=== PATIENT | female | born 1985 | race Caucasian/White ===

== ENCOUNTER → 2019-03-28 12:34 | Outpatient (CLI) | payer OTHER, MEDICAID, SELFPAY | PROVIDERS: Visit Provider Physician Assistant | DX: J32.9 Chronic sinusitis, unspecified (principal) | CPT/HCPCS: 87070 ==

== ENCOUNTER 2020-03-17 20:58 | Emergency (ER) | payer OTHER, MEDICAID, SELFPAY ==
[2020-03-17 21:04] VITALS: BP 133/71; PULSE 93; RESP 16; TEMP 36.7; O2SAT 99; BMI 35.5
[2020-03-17 21:31] LABS: COVID19 -Nasal RAPID Negative (Negative)
--- NOTE | 2020-03-17 21:35 | ED.GENADULT ---
HPI - General Adult General Chief complaint: Upper Respiratory Symptoms Stated complaint: covid symptoms Time Seen by Provider: 03/17/20 21:08 Source: patient Mode of arrival: Ambulatory Limitations: no limitations History of Present Illness HPI narrative: 34-year-old female who has had approximately 1 week of body aches and a sore throat and developed a cough earlier today. She has a child at home who has leukemia so she was concerned about coronavirus. She does express somewhat of a sore throat. Has been taking Tylenol at home. She is here for a COVID-19 test. Related Data Home Medications Medication Instructions Recorded Confirmed No Known Home Medications 03/28/19 03/28/19 Allergies Allergy/AdvReac Type Severity Reaction Status Date / Time No Known Drug Allergies Allergy Verified 03/28/19 11:50 Review of Systems Constitutional Constitutional: Denies fever(s), Reports lethargy and Reports malaise ENT Ears, Nose, Mouth, and Throat: Reports sore throat Cardiovascular Cardiovascular: Denies chest pain and Denies dyspnea Respiratory Respiratory: Reports cough and Denies dyspnea Integumentary/Breasts Skin/Breast: Denies lesions and Denies rash Neurologic Neurologic: Denies behavioral changes Psychiatric Psychiatric: Denies behavioral changes Hematologic/Lymphatic Hematologic/Lymphatic: Denies easy bleeding and Denies easy bruising Patient History Medical History Healthy adult (Acute) Social History Smoking Status: Current every day smoker Smoking Status: Current every day smoker tobacco type: cigarettes alcohol intake frequency: holidays/special occasions only Substance Use Type: does not use Exam Initial Vital Signs Initial Vital Signs: Vital Signs Temperature 98.0 F 03/17/20 21:04 Pulse Rate 93 H 03/17/20 21:04 Respiratory Rate 16 03/17/20 21:04 Blood Pressure 133/71 03/17/20 21:04 Pulse Oximetry 99 03/17/20 21:04 Const General: cooperative, comfortable and well developed Resp Effort & Inspection: normal respiratory effort Auscultation: clear to auscultation bilaterally Skin Lesions: no lesions Rashes: no rashes Neuro General: patient alert, patient awake and patient oriented x3 Psych Appearance: grossly normal and well kempt Course Orders Ordered: ED Orders 03/17/20 21:08 COVID19 -ED/INPAT/OR/L&D Stat Vital Signs Vital signs: Vital Signs - 8 hr 03/17/20 21:04 03/17/20 21:53 Temperature 98.0 F Pulse Rate 93 H 79 Respiratory Rate 16 17 Blood Pressure 133/71 134/76 Pulse Oximetry 99 99 Medical Decision Making Lab Data Lab results reviewed: Yes I reviewed the patient's lab results. Labs: Lab Results 03/17/20 Range/Units 21:08 COVID-19 PCR Negative (Negative) MDM Narrative Medical decision making narrative: No respiratory distress, afebrile, coronavirus test negative. No indication for antibiotics. Patient was given return precautions. She expressed understanding agreement. Discharge Plan Departure Patient Disposition: Home Clinical Impression: Cough, Body aches Discharge Date/Time: 03/17/20 21:55 Activity Restrictions/Additional Instructions: Your coronavirus test is negative. Despite this I do recommend that you cover your cough in wash your hands frequently. Contact your primary provider for follow-up. Return to the emergency department for any new or worsening symptoms Prescriptions: No Action No Known Home Medications RF: 0
[2020-03-17 21:53] VITALS: BP 134/76; PULSE 79; RESP 17; O2SAT 99
== END 2020-03-17 21:55 | disposition home or self-care (01) ==
PROVIDERS: Emergency Provider Emergency Medicine
DX: Z03.818 Encounter for observation for suspected exposure to other biological agents ruled out (principal); R05 Cough; R52 Pain, unspecified; J02.9 Acute pharyngitis, unspecified
CPT/HCPCS: 87635; 99281; 99282

== ENCOUNTER 2020-04-03 18:27 | Emergency (ER) | payer OTHER, MEDICAID, SELFPAY ==
[2020-04-03 18:34] VITALS: BP 136/87; PULSE 69; RESP 15; TEMP 36.8; O2SAT 98; BMI 35.5
[2020-04-03] MEDS: TET,DIPH,PERTUSS(ACELL),VAC/PF 0.5 ML SYRINGE IM (20:38)
--- NOTE | 2020-04-03 21:43 | ED.WOUNDLAC ---
HPI - Wound/Laceration General Chief Complaint: Wound/Laceration Stated Complaint: RIGHT HAND LACERATION OF INDEX FINGER Time Seen by Provider: 04/03/20 21:25 Source: patient Mode of arrival: Ambulatory Limitations: no limitations History of Present Illness HPI narrative: 34-year-old female daily smoker with noncontributory medical history presents with a chief complaint of an accidental laceration dorsum of her right index finger. She was reaching into a washing machine Lint been and cut her finger on sharp metal. She is is unaware when her last tetanus shot might have been. It bled a fair amount initially but has since stopped. She has full range of motion and denies any numbness, tingling or weakness Onset (ago): minute(s) Extremity Location: Right: hand Place: home Patient tetanus UTD: No Context: accidental Associated symptoms: pain Treatments prior to arrival: bandage Related Data Previous Rx's Medication Instructions Recorded cephalexin [Keflex] 500 mg PO QID 7 Days #28 cap 04/03/20 Allergies Allergy/AdvReac Type Severity Reaction Status Date / Time No Known Drug Allergies Allergy Verified 04/03/20 18:34 Review of Systems Constitutional Constitutional: Denies chills, Denies fatigue, Denies fever(s), Denies frequent falls, Denies lethargy and Denies weakness Eyes Eyes: Denies change in vision, Denies eye discharge, Denies irritation and Denies loss of vision ENT Ears, Nose, Mouth, and Throat: Denies change in voice, Denies dizziness, Denies neck pain, Denies sore throat and Denies throat swelling Cardiovascular Cardiovascular: Denies chest pain, Denies irregular heart rhythm, Denies lightheadedness, Denies palpitations, Denies dyspnea, Denies dyspnea on exertion and Denies orthopnea Respiratory Respiratory: Denies cough, Denies dyspnea, Denies dyspnea on exertion and Denies wheezing Gastrointestinal Gastrointestinal: Denies abdominal pain, Denies change in bowel habits, Denies diarrhea, Denies nausea and Denies vomiting Musculoskeletal Musculoskeletal: Denies neck pain and Denies numbness Integumentary/Breasts Skin/Breast: Denies pruritus, Denies erythema, Denies rash and Reports wounds Neurologic Neurologic: Denies behavioral changes, Denies confusion, Denies dizziness, Denies frequent falls, Denies loss of vision, Denies numbness and Denies weakness Psychiatric Psychiatric: Denies anxiety, Denies behavioral changes, Denies confusion, Denies depression, Denies homicidal ideation and Denies suicidal ideation Endocrine Endocrine: Denies fatigue, Denies flushing and Denies palpitations Hematologic/Lymphatic Hematologic/Lymphatic: Denies easy bruising Allergic/Immunologic Allergic/Immunologic: Denies urticaria, Denies throat swelling and Denies wheezing Patient History Medical History Healthy adult Social History Smoking Status: Current every day smoker Smoking Status: Current every day smoker tobacco type: cigarettes alcohol intake frequency: holidays/special occasions only Substance Use Type: does not use and marijuana Exam Narrative Exam Narrative: GEN: AOx3 and in mild distress EYES: Pupils are equal, round, and reactive to light and accommodation. Extraoccular muscles are intact bilaterally. There is no subconjunctival hemorrhage or exudate. CHEST: Lungs are clear to auscultation bilaterally and free of wheezes, rales, or rhonchi. Heart rate is regular rhythm, there are no murmurs, clicks, rubs, or gallops. There is no chest wall tenderness. ABD: Abdomen is soft and nontender. There is no guarding or rebound. Bowel sounds are normal in all 4 quadrants. There is no mass or organomegaly. EXT: 1 cm laceration overlying the dorsal surface of the right index finger, over the middle phalanx. It is visualized in bloodless field and no involvement tendon noted. Patient has full strength, sensation and range of motion. SKIN: Warm, pink, and dry. No erythema or rash Initial Vital Signs Initial Vital Signs: Vital Signs Temperature 98.2 F 04/03/20 18:34 Pulse Rate 69 04/03/20 18:34 Respiratory Rate 15 04/03/20 18:34 Blood Pressure 136/87 04/03/20 18:34 Pulse Oximetry 98 04/03/20 18:34 Procedures Laceration Repair Laceration 1: Site: upper extremity Side (If applicable): right Size (cm): 1 Description: linear Depth: simple, single layer Local Anesthetic: lidocaine 1% Amount of anesthesia used (mL): 3 Skin layer closed with: nylon Size (cm): 5-0 Number of sutures: 3 Technique: simple, interrupted Course Orders Ordered: Discontinued Medications Bacitracin (Bacitracin Oint 0.9 Gm Pckt) 1 applic TOP NOW ONE Stop: 04/03/20 21:59 Last Admin: 04/03/20 22:05 Dose: 1 applic Documented by: MONCHO Diphtheria/Tetanus/Acell Pertussis (Tet,Diph,Pertuss(Acell),Vac/Pf 0.5 Ml Syringe) 0.5 ml IM .ONCE ONE Stop: 04/03/20 18:48 Last Admin: 04/03/20 20:38 Dose: 0.5 ml Documented by: GABRIEL Lidocaine/Sodium Bicarbonate (Lido 1%/Sod Bicarb 8.4% (10ml) 10 Ml Syringe) 10 ml INJ NOW ONE Stop: 04/03/20 21:44 Last Admin: 04/03/20 21:51 Dose: 10 ml Documented by: MONCHO Vital Signs Vital signs: Vital Signs - 8 hr 04/03/20 22:08 Pulse Rate 59 L Respiratory Rate 18 Blood Pressure 136/70 Pulse Oximetry 100 Discharge Plan Departure Patient Disposition: Home Clinical Impression: Laceration Instructions: DI for Laceration Repair Activity Restrictions/Additional Instructions: Please keep the wound clean and dry to the best of your ability. Please monitor for signs of infection such as redness to the skin or increasing pain. Have the sutures removed by your doctor in about 7 days. If you are unable to get into your doctor, we would be happy to remove the sutures in that same timeframe. Prescriptions: New cephalexin [Keflex] 500 mg capsule 500 mg PO QID 7 Days Qty: 28 RF: 0
[2020-04-03] MEDS: LIDO 1%/SOD BICARB 8.4% (10ML) 10 ML SYRINGE INJ (21:51)
[2020-04-03] MEDS: BACITRACIN OINT 0.9 GM PCKT 1 APPLIC TOP (22:05)
[2020-04-03 22:08] VITALS: BP 136/70; PULSE 59; RESP 18; O2SAT 100
== END 2020-04-03 22:08 | disposition home or self-care (01) ==
PROVIDERS: Emergency Provider Emergency Medicine
DX: S61.210A Laceration without foreign body of right index finger without damage to nail, initial encounter (principal); W26.9XXA Contact with unspecified sharp object(s), initial encounter; Z23 Encounter for immunization
CPT/HCPCS: 12001; 90471; 99281; 99283; 90715

== ENCOUNTER 2021-05-28 09:22 | Emergency (ER) | payer OTHER, MEDICAID, SELFPAY ==
[2021-05-28 09:25] VITALS: BP 109/60; PULSE 86; RESP 15; TEMP 37; O2SAT 99; BMI 38.7
--- NOTE | 2021-05-28 10:05 | ED_ITS ---
HPI - Fever General Chief Complaint: Fever Stated Complaint: Pain/numbness from top to bottom, faint, vomiting Time Seen by Provider: 05/28/21 09:32 Source: patient Mode of arrival: Ambulatory History of Present Illness HPI Narrative: Patient brought in from home by her family friend. Patient states no complaints or problems yesterday. She woke this morning at 3:00 a.m. with back pain and headache. Has nausea but no vomiting. Patient went to work this morning and developed a fever and oral thermometer read at least 100?. She took Motrin. She went home and took a cool bath. Family tried adjusting her back without any improvement. No prior history of back problems. She did have in the past with epidural that required a blood patch. There is COVID exposure by neighbors. Patient is COVID vaccinated. No cough cold congestion. No urinary complaints. No diarrhea. Related Data Previous Rx's Medication Instructions Recorded ondansetron 4 mg disintegrating 4 mg PO Q8H PRN #10 tab 05/28/21 tablet Allergies Allergy/AdvReac Type Severity Reaction Status Date / Time unknown allergy Allergy Uncoded 05/28/21 09:31 Review of Systems Review of Systems Narrative: GENERAL: Positivechills, fatigue, malaise, fever, negative sweats. HEENT: Denies sinus pain, ear pain, sore throat RESPIRATORY: Denies dyspnea, cough CARDIOVASCULAR: Denies chest pain, palpitations GASTROINTESTINAL: Positive nausea, negative vomiting, abdominal pain : Denies dysuria, frequency, hematuria MUSCULOSKELETAL: Positive muscle or bony pain SKIN: Denies rash, skin lesions NEUROLOGIC: Denies weakness, numbness, positive for headache ROS Unobtainable: All systems reviewed & are unremarkable except as noted in HPI and below Patient History Medical History (Updated 05/28/21 @ 10:57 by Edmundo Ross MD) Healthy adult Social History Smoking Status: Current every day smoker Smoking Status: Current every day smoker tobacco type: cigarettes alcohol intake frequency: holidays/special occasions only Substance Use Type: does not use and marijuana Exam Narrative Exam Narrative: GENERAL: in no distress, not toxic not dyspneic HEAD: Normocephalic. EYES: Pupils equal round No scleral icterus. No photophobia with funduscopic ENT: Mucous membranes moist. NECK: Trachea midline. Full active range of motion of the neck without any meningeal signs or pain. CARDIOVASCULAR: Regular rate and rhythm without murmurs RESPIRATORY: Clear to auscultation. Breath sounds equal bilaterally. No wheezes, rales, or rhonchi. GASTROINTESTINAL: Abdomen soft, non-tender EXTREMITIES: No gross deformities. BACK: Pain with movement of the back at the mid and lower levels NEURO: AOx4. SKIN: Warm and dry PSYCH: Not anxious, is cooperative Initial Vital Signs Initial Vital Signs: Vital Signs Temperature 98.6 F 05/28/21 09:25 Pulse Rate 86 05/28/21 09:25 Respiratory Rate 15 05/28/21 09:25 Blood Pressure 109/60 05/28/21 09:25 Pulse Oximetry 99 05/28/21 09:25 Course Course Course Narrative: No new issues during course of stay Orders Ordered: Discontinued Medications Sodium Chloride (Normal Saline 0.9%) 1,000 mls @ 1,000 mls/hr IV BOLUS ONE Stop: 05/28/21 10:52 Last Infusion: 05/28/21 11:23 Dose: 0 mls/hr Documented by: Admin: 05/28/21 10:20 Dose: 1,000 mls/hr Documented by: NIEVES Sodium Chloride (Normal Saline 0.9%) 1,000 mls @ 1,000 mls/hr IV BOLUS ONE Stop: 05/28/21 11:03 Last Admin: 05/28/21 11:22 Dose: Not Given Documented by: NIEVES Ketorolac Tromethamine (Ketorolac 30 Mg/Ml Vial) 15 mg IV NOW ONE Stop: 05/28/21 10:05 Last Admin: 05/28/21 10:19 Dose: 15 mg Documented by: NIEVES Ondansetron HCl (Ondansetron 4 Mg/2 Ml Inj) 4 mg IV NOW ONE Stop: 05/28/21 10:05 Last Admin: 05/28/21 10:20 Dose: 4 mg Documented by: NIEVES Reevaluation(s) Reevaluation #1: Reviewed results with patient. COVID positive. She is vaccinated. She states her child with leukemia on chemotherapy at home, patient states she will remove herself from the home. Return precautions reviewed with her. She states feeling much better after IV fluids Toradol and Zofran. Time: 10:56 Vital Signs Vital signs: Vital Signs - 8 hr 05/28/21 09:25 Temperature 98.6 F Pulse Rate 86 Respiratory Rate 15 Blood Pressure 109/60 Pulse Oximetry 99 MDM - Fever Differential Diagnosis Differential diagnosis: Likely fever of unknown origin, community acquired pneumonia, viral infection and other (COVID infection) Lab Data Result diagrams: 05/28/21 09:48 05/28/21 09:48 Labs: Lab Results 05/28/21 05/28/21 05/28/21 Range/Units 09:30 09:48 09:48 WBC 6.5 (4.5-11.0) X10^3/uL RBC 4.32 (4.0-5.2) X10^6/uL Hgb 12.6 (12.0-16.0) g/dL Hct 37.4 (36-46) % MCV 86.5 (80-100) fL MCH 29.3 (26-34) PG MCHC 33.8 (30-36) % RDW 13.6 (11.6-14.8) % Plt Count 215 (150-400) X10^3/uL Neut % (Auto) 82.6 H (50-75) % Lymph % (Auto) 4.2 L (25-40) % [place] % (Auto) 10.1 (3-14) % Eos % (Auto) 2.5 (2-4) % Baso % (Auto) 0.6 (0-2) % Neut # (Auto) 5400 (8671-7361) /uL Lymph # (Auto) 300 L (5825-9500) /uL [place] # (Auto) 700 (0-900) /uL Eos # (Auto) 200 (0-450) /uL Baso # (Auto) 0 (0-100) /uL Sodium 136 L (137-145) mmol/L Potassium 4.0 (3.4-5.1) mmol/L Chloride 103 (98-107) mmol/L Carbon Dioxide 24 (22-32) mmol/L BUN 13 (7-17) mg/dL Creatinine 0.83 (0.52-1.04) mg/dL Estimated GFR > 60.0 (>60) mL/min BUN/Creatinine Ratio 15.7 (6-22) Glucose 93 (70-100) mg/dL Lactate (0.7-2.1) mmol/L Calcium 9.0 (8.4-10.2) mg/dL Total Bilirubin 0.3 (0.2-1.3) mg/dL AST 39 H (14-36) IU/L ALT 33 (<35) IU/L Alkaline Phosphatase 56 (38-126) U/L Total Protein 7.2 (6.3-8.2) g/dL Albumin 4.2 (3.5-5.0) g/dL Globulin 3.0 (1.7-4.1) g/dL Albumin/Globulin Ratio 1.4 (1.0-2.8) SARS-CoV-2 (PCR) Positive H (Negative) 05/28/21 Range/Units 09:48 WBC (4.5-11.0) X10^3/uL RBC (4.0-5.2) X10^6/uL Hgb (12.0-16.0) g/dL Hct (36-46) % MCV (80-100) fL MCH (26-34) PG MCHC (30-36) % RDW (11.6-14.8) % Plt Count (150-400) X10^3/uL Neut % (Auto) (50-75) % Lymph % (Auto) (25-40) % [place] % (Auto) (3-14) % Eos % (Auto) (2-4) % Baso % (Auto) (0-2) % Neut # (Auto) (2442-9328) /uL Lymph # (Auto) (9930-9709) /uL [place] # (Auto) (0-900) /uL Eos # (Auto) (0-450) /uL Baso # (Auto) (0-100) /uL Sodium (137-145) mmol/L Potassium (3.4-5.1) mmol/L Chloride (98-107) mmol/L Carbon Dioxide (22-32) mmol/L BUN (7-17) mg/dL Creatinine (0.52-1.04) mg/dL Estimated GFR (>60) mL/min BUN/Creatinine Ratio (6-22) Glucose (70-100) mg/dL Lactate 1.3 (0.7-2.1) mmol/L Calcium (8.4-10.2) mg/dL Total Bilirubin (0.2-1.3) mg/dL AST (14-36) IU/L ALT (<35) IU/L Alkaline Phosphatase (38-126) U/L Total Protein (6.3-8.2) g/dL Albumin (3.5-5.0) g/dL Globulin (1.7-4.1) g/dL Albumin/Globulin Ratio (1.0-2.8) SARS-CoV-2 (PCR) (Negative) MDM Narrative Medical decision making narrative: Appropriate for discharge home. Laboratory studies and exam and vital signs reassuring. Patient feeling much better after treatment here return precautions reviewed with her. No complaints of dyspnea. No hypoxia. No imaging indicated. Return precautions reviewed with her. She desires discharge home. No lumbar puncture indicated. No meningeal signs. Patient nontoxic. No fever here. White cell count normal Discharge Plan Departure Patient Disposition: Home Clinical Impression: COVID-19 Instructions: DI for COVID-19 (Suspected or Confirmed ) Activity Restrictions/Additional Instructions: Keep well hydrated. Continue Tylenol or ibuprofen for fever body aches headaches. See family doctor in a week for recheck. Continue 10 days of quarantine from today. Return if worse or for any questions or concerns. Call provided primary care referral phone number to establish family doctor. Call [phone] Prescriptions: New ondansetron 4 mg tablet,disintegrating 4 mg PO Q8H PRN (Reason: nausea and vomiting) Qty: 10 0RF
[2021-05-28 10:16] LABS: Lactate (Lactic Acid) 1.3 mmol/L (0.7-2.1)
[2021-05-28 10:17] LABS: Alanine Aminotransferase 33 IU/L (<35); Albumin 4.2 g/dL (3.5-5.0); Albumin Globulin Ratio 1.4 (1.0-2.8); Alkaline Phosphatase 56 U/L (38-126); Aspartate Aminotransferase 39 IU/L (14-36); BUN Creatinine Ratio 15.7 (6-22); Bilirubin Total 0.3 mg/dL (0.2-1.3); Blood Urea Nitrogen 13 mg/dL (7-17); Carbon Dioxide 24 mmol/L (22-32); Chloride 103 mmol/L (98-107); Estimated Glomerular Filt Rate > 60.0 mL/min (>60); Glucose 93 mg/dL (70-100); HEMOLYSIS < 15 (0-50); Sodium 136 mmol/L (137-145); Total Protein 7.2 g/dL (6.3-8.2)
[2021-05-28] MEDS: KETOROLAC 30 MG/ML VIAL 15 MG IV (10:19)
[2021-05-28] MEDS: SODIUM CHLORIDE 0.9% 1,000 ML 1000 ML IV (10:20)
[2021-05-28] MEDS: ONDANSETRON 4 MG/2 ML INJ IV (10:20)
[2021-05-28 10:27] LABS: Add Manual Diff / Slide Review NO; Basophils Absolute Auto 0 /uL (0-100); Basophils Percent Auto 0.6 % (0-2); Eosinophils Absolute Auto 200 /uL (0-450); Eosinophils Percent Auto 2.5 % (2-4); Hematocrit 37.4 % (36-46); Hemoglobin 12.6 g/dL (12.0-16.0); Lymphocytes Absolute Auto 300 /uL (1100-4500); Lymphocytes Percent Auto 4.2 % (25-40); Mean Corpuscular HGB Conc 33.8 % (30-36); Mean Corpuscular Hemoglobin 29.3 PG (26-34); Mean Corpuscular Volume 86.5 fL (80-100); Monocytes Absolute Auto 700 /uL (0-900); Monocytes Percent Auto 10.1 % (3-14); Neutrophils Absolute Auto 5400 /uL (1500-7000); Neutrophils Percent Auto 82.6 % (50-75); Platelet Count 215 X10^3/uL (150-400); Red Blood Cell Count 4.32 X10^6/uL (4.0-5.2); Red Cell Distribution Width 13.6 % (11.6-14.8); White Blood Cell Count 6.5 X10^3/uL (4.5-11.0)
[2021-05-28 10:36] LABS: COVID19 -Nasal RAPID POSITIVE (Negative)
== END 2021-05-28 11:30 | disposition home or self-care (01) ==
PROVIDERS: Emergency Provider Emergency Medicine
DX: U07.1 COVID-19 (principal)
CPT/HCPCS: 36415; 80053; 83605; 85025; 87635; 96361; 96374; 96375; 99284; C9803; J1885; J2405

== ENCOUNTER 2023-05-06 01:01 | Emergency (ER) | payer BC, SELFPAY ==
[2023-05-06 01:16] VITALS: BP 146/89; PULSE 84; RESP 158; TEMP 36.9; O2SAT 98; BMI 32.3
--- NOTE | 2023-05-06 02:04 | ED.EXTPRO ---
HPI - Extremity Problem General Chief complaint: Extremity Problem,Nontraumatic Stated complaint: rt side shoulder pain, Time Seen by Provider: 05/06/23 01:30 Source: patient Mode of arrival: Ambulatory History of Present Illness HPI Narrative: Patient comes to the ED tonight because of severe pain in her right shoulder where she knows she has a lipoma. The lipoma has come up Rapidly over the past weeks. She saw a doctor in [place] for it who mocked her because of her complaint of pain associated with it. She has had an MRI to confirm the diagnosis and she produces for me the result which confirms this 3 x 5 x 1 cm lipoma over the right shoulder blade. She is no trauma associated with this. She says pain radiating to her arm as well. The pain is keeping her awake at night. Tylenol or ibuprofen are insufficient to manage the pain. No fever or other trauma or chest symptoms such as cough or shortness of breath. Pain is distinctly worse with pressure right over the lipoma or with movement of her arm. Related Data Previous Rx's Medication Instructions Recorded ondansetron 4 mg disintegrating 4 mg PO Q8H PRN nausea and 05/28/21 tablet vomiting #10 tabs gabapentin 100 mg capsule 100 mg PO TID #90 caps 05/06/23 morphine 15 mg immediate release 15 mg PO Q6H PRN pain #8 tabs 05/06/23 tablet naloxone 4 mg/actuation nasal 4 mg intranasal Q2M PRN opioid 05/06/23 spray (Narcan) overdose #2 ea Allergies Allergy/AdvReac Type Severity Reaction Status Date / Time unknown allergy Allergy Uncoded 05/28/21 09:31 Patient History Medical History (Updated 05/06/23 @ 02:03 by César Chi MD) Healthy adult Social History Smoking Status: Current every day smoker Smoking Status: Current every day smoker tobacco type: cigarettes alcohol intake frequency: holidays/special occasions only Substance Use Type: does not use and marijuana Exam Narrative Exam Narrative: GENERAL: Alert, cooperative and in no distress. HEAD: Atraumatic. Normocephalic. EYES: Sclera are clear without icterus. Extraocular movements are full. ENT: No rhinorrhea. NECK: Supple. Full range of motion. CARDIOVASCULAR: Normal rate and rhythm without murmur gallop or rub. RESPIRATORY: Clear to auscultation. Breath sounds equal bilaterally. No wheezes, rales, or rhonchi. GASTROINTESTINAL: Abdomen soft, non-tender, nondistended. EXTREMITIES: No edema, full range of motion. No obvious trauma. She has a palpable soft tissue mass over the right shoulder blade. This is very tender to touch. BACK: Normal inspection, no CVA tenderness. NEURO: Nonfocal examination, normal speech SKIN: No rash or erythema of visible areas PSYCH: Normally oriented. Normal range of affect. Appropriate behavior Initial Vital Signs Initial Vital Signs: Vital Signs Temperature 98.4 F 05/06/23 01:16 Pulse Rate 84 05/06/23 01:16 Respiratory Rate 158 H 05/06/23 01:16 Blood Pressure 146/89 H 05/06/23 01:16 Pulse Oximetry 98 05/06/23 01:16 Oxygen Delivery Method Room Air 05/06/23 01:16 Course Orders Ordered: Morphine Sulfate (Morphine Ir 30 Mg Tablet) 15 mg PO Q6HR PRN PRN Reason: Pain, Severe (7-10) Discontinued Medications Acetaminophen (Acetaminophen 325 Mg Tablet) 975 mg PO NOW ONE Stop: 05/06/23 02:00 Gabapentin (Gabapentin 100 Mg Capsule) 100 mg PO NOW ONE Stop: 05/06/23 02:00 Ibuprofen (Ibuprofen 400 Mg Tablet) 800 mg PO NOW ONE Stop: 05/06/23 02:00 Vital Signs Vital signs: Vital Signs - 8 hr 05/06/23 01:16 Temperature 98.4 F Pulse Rate 84 Respiratory Rate 158 H Blood Pressure 146/89 H Pulse Oximetry 98 Oxygen Delivery Method Room Air MDM - Extremity (Nontraumatic) MDM Narrative Medical decision making narrative: Severe pain associated with lipoma that has been rapidly growing recently. No hard neurologic deficits identified. 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 She has no signs or symptoms of infection overlying the lipoma and she does have the MRI result. We will provide analgesia for this and recommend surgical consultation for elective removal. Discharge Plan Departure Patient Disposition: Home Clinical Impression: Lipoma Activity Restrictions/Additional Instructions: I believe the pain you are experiencing is coming from the lipoma in the right shoulder area. I recommend follow-up with surgery to discuss elective removal of this lipoma mass. You should follow-up right away if you develop high fever, loss of functioning your upper extremity or other severe symptoms in the meantime. For now I recommend symptom management with following regimen: Tylenol 1000 mg taken together with ibuprofen 600 mg every 6 hours by the clock. Gabapentin 100 mg 3 times a day. This dose can be increased gradually over time for additional help with this neuropathic pain. Morphine tablets 1 taken as frequently as every 6 hours as needed for severe pain. This is a temporary medication only and should not be used long-term. It is habit-forming and prone to causing constipation, nausea and addiction. Minimize the use of this medication. If you take it you should not be operating a vehicle or other complex activities. I was prescribed Narcan in the event of accidental overdose with his medication. It should not be taken in conjunction with other sedatives such as alcohol or benzodiazepines or sleep aids. Prescriptions: New gabapentin 100 mg capsule 100 mg PO TID Qty: 90 0RF naloxone [Narcan] 4 mg/actuation spray,non-aerosol 4 mg intranasal Q2M PRN (Reason: opioid overdose) Qty: 2 0RF Rx Instructions: spray 1 dose into ONE nostril; alternate nostrils w each dose until help arrives morphine 15 mg tablet 15 mg PO Q6H PRN (Reason: pain) Qty: 8 0RF No Action ondansetron 4 mg tablet,disintegrating 4 mg PO Q8H PRN (Reason: nausea and vomiting) Qty: 10 0RF Referrals: Gabrielle Hdez MD [Physician] - Stand Alone Forms: Patient Portal/API
[2023-05-06] MEDS: ACETAMINOPHEN 325 MG TABLET 975 MG PO (02:21)
[2023-05-06] MEDS: IBUPROFEN 400 MG TABLET 800 MG PO (02:22)
[2023-05-06] MEDS: GABAPENTIN 100 MG CAPSULE PO (02:36)
[2023-05-06] MEDS: OXYCODONE IR 5 MG TABLET PO (02:42)
[2023-05-06 02:49] VITALS: BP 125/78; PULSE 77; RESP 18; TEMP 36.9; O2SAT 97
== END 2023-05-06 02:54 | disposition home or self-care (01) ==
PROVIDERS: Emergency Provider Family Medicine Addiction Medicine
DX: D17.39 Benign lipomatous neoplasm of skin and subcutaneous tissue of other sites (principal)
CPT/HCPCS: 99283